=== PATIENT | female | born 1995 | race Caucasian/White ===

== ENCOUNTER 2017-07-21 07:25 | Emergency (ER) | payer OTHER ==
[~2017-07-21] VITALS: Ht 170.2 cm; Wt 167.2 kg
[~2017-07-21 07:25] MED LIST: ALBUTEROL IH; CLARITIN,ALAVAR10 MG PO; DEPO IM; FLONASE16 G1 BOTH NARES; IBUPROFEN200 M1 PO; METFORMIN HCL500 MG PO; METFORMIN HYDROC1 GM MC; MUCUS ER600 MG PO; NAPROSYN500 MG PO; PROVENTIL,2.5 MG/3 M IH; ROBITUSSIN NIG118 ML PO; TESSALON PERLE100 MG PO; TYLENOL EXTRA500 MG PO; VENTOLIN HFA18 GM IH; Z-QUIL PO
[2017-07-21] MEDS ORDERED: BACTRIM,SEPT1 TABLET PO (09:40)
[2017-07-21] MEDS ORDERED: KEFLEX500 MG PO (09:40)
[2017-07-21 10:13] VITALS: BP 127/77
== END 2017-07-21 10:14 | disposition home or self-care (01) ==
LOC: EME 07:25
DX: L03.311 Cellulitis of abdominal wall (principal); S30.811A Abrasion of abdominal wall, initial encounter; X58.XXXA Exposure to other specified factors, initial encounter; E11.9 Type 2 diabetes mellitus without complications; Z79.84 Long term (current) use of oral hypoglycemic drugs; J45.909 Unspecified asthma, uncomplicated
CPT/HCPCS: 99281; 99284